=== PATIENT | female | born 1985 | race Caucasian/White ===

== ENCOUNTER 2020-10-09 11:00 | Outpatient (RCR) | payer BC, SELFPAY | END 2020-10-09 11:05 | disposition home or self-care (01) | LOC: PT 11:00 | PROVIDERS: Visit Provider Orthopaedic Surgery | DX: S83.31XA Tear of articular cartilage of right knee, current, initial encounter (principal) | CPT/HCPCS: 97010; 97014; 97110; 97140; 97163; G0283 ==

== ENCOUNTER 2020-10-14 14:06 | Emergency (ER) | payer BC, SELFPAY ==
[2020-10-14 14:07] VITALS: BP 114/45; PULSE 61; RESP 18; TEMP 36.8; O2SAT 100; BMI 22.2
--- NOTE | 2020-10-14 14:21 | HMH.EDGENADL ---
ED Disposition Clinical Impression: Peripheral edema Disposition: Home, Self-Care Condition on Discharge: Good Additional Instructions: Rest, elevate legs. Contact your orthopedist or primary care provider for repeat Doppler exam within the next 5 days. Return to the emergency department if symptoms worsen, or if new symptoms such as chest pain or shortness of breath. Referrals: Provider,Referral, [Primary Care Provider] - - Critical Care Critical Care Time: No Attestation: On 10/14/20, the high probability of a clinically significant, sudden or life threatening deterioration of the following system(s) required my full and direct attention, intervention and personal management. The time I documented below is in addition to time spent performing reported procedures but includes the following listed in this critical care notation. Medical Decision Making - Jose Inquiry Pt receiving controlled substance: No Vital Signs: 10/14/20 14:07 10/14/20 16:09 Temperature 98.3 F 98.3 F Temperature Source Oral Oral Pulse Rate 68 Pulse Rate [Left Radial] 61 Respiratory Rate 18 20 Blood Pressure 116/70 Blood Pressure [Right Arm] 114/45 L Blood Pressure Mean [Right Arm] 68 Blood Pressure Source Automatic Cuff Blood Pressure Source [Right Arm] Automatic Cuff Blood Pressure Position Sitting Blood Pressure Position [Right Arm] Sitting 02 Sat by Pulse Oximetry 100 Oxygen Delivery Method Room Air Room Air - Lab Data Lab Results 10/14/20 14:39: WBC 8.4, RBC 3.81 L, Hgb 11.5 L, Hct 32.9 L, MCV 86.1, MCH 30.1, MCHC 34.9, RDW 12.5, Plt Count 276, MPV 7.7, Neut % (Auto) 69.3, Lymph % (Auto) 23.9, Daniels % (Auto) 4.9, Eos % (Auto) 1.4, Baso % (Auto) 0.6, Neut # (Auto) 5.8, Lymph # (Auto) 2.0, Daniels # (Auto) 0.4, Eos # (Auto) 0.1, Baso # (Auto) 0.1 10/14/20 14:39: Sodium 138, Potassium 3.5, Chloride 101, Carbon Dioxide 32 H, Anion Gap 8.5, BUN 10, Creatinine 0.80, Estimated Creat Clear 82, Estimated GFR 83, Est GFR ( Amer) 100, Glucose 105 H, Calcium 8.8 Result diagrams: 10/14/20 14:39 10/14/20 14:39 - US Data US Images: Lower Extremity Findings Narrative: As per [facility] procedure, doppler report received from registered vascular technologist (rvt): Right leg negative. Left leg negative except for 1 small area of both peroneal vein and calf that would not compress. Medical Decision Narrative: Doubt distal DVT in left leg, but with recommend follow-up repeat Doppler within 5 days to rule out DVT with propagation. General Adult HPI - General Stated complaint: right leg swollen and red Time Seen by Provider: 10/14/20 14:33 - History of Present Illness HPI narrative: The patient had surgery on her right knee on Friday, meniscus and ligament surgery. She has swelling of both of her legs, right greater than left. Denies fever. Says her incisions look great. No chest pain or shortness of breath. She feels great otherwise. She called her orthopedic service and they advised her to come in to be checked for DVT. No prior history of DVT. - Related Data Previous Rx's Medication Instructions Recorded Cyclobenzaprine HCl [Flexeril 10mg 10 mg PO Q8HP PRN 10 Days #30 tab 04/16/19 tablet] Allergies Allergy/AdvReac Type Severity Reaction Status Date / Time acetaminophen Allergy Unknown TWITCHES Unverified 05/06/17 14:16 [From TYLENOL PM] diphenhydramine Allergy Unknown TWITCHES Unverified 05/06/17 14:16 [From TYLENOL PM] [facility] History - Hepatitis A Screen Attestation statement:: This patient has been screened for Hepatitis A risk factors. I have reviewed the patient's past medical history: Yes - Social History Alcohol Intake: never Occupational Status: other ROS Obtained: Yes Systems reviewed as appropriate & no additional complaints - Constitutional Constitutional: Denies fever(s) - Cardiovascular Cardiovascular: Denies chest pain - Respiratory Respiratory: Denies dyspn
--- NOTE | 2020-10-14 14:31 | PC.NURSE ---
RT called medical laboratory technician in for doppler
--- NOTE | 2020-10-14 14:33 | CA_ITS ---
APPROVED REPORT Bilateral Lower Extremity Venous Study for DVT. Investment Strategist: TAWNYA JohnsonT Indications Lower Extremity Pain: Right Lower Extremity Edema: Bilateral S/P RT KNEE SURGERY, SWELLING BLE'S RT WORSE THAN LT, REDNESS RT LEG Risk Factors Post OP Vein Imaging CFV (R): compressive, spontaneous, phasic, augmentation FEM (R): compressive, spontaneous, phasic, augmentation POP (R): compressive, spontaneous, phasic, augmentation PTV (R): Compressible GSV (R): Compressible Peroneals (R):Compressible GAS (R): Compressible CFV (L): compressive, spontaneous, phasic, augmentation FEM (L): compressive, spontaneous, phasic, augmentation POP (L): compressive, spontaneous, phasic, augmentation PTV (L): Compressible GSV (L): Compressible Peroneals (L):Non-Compressible GAS (L): Compressible Findings Study suggests no evidence of DVT of the right lower extremity. Study suggests a non-compressible area in the proximal left proximal peroneal vein other deep veins of left lower extremity are negative. Study suggests no evidence of SVT of the bilateral lower extremites. Conclusion Study suggests no evidence of DVT of the right lower extremity. Study suggests a non-compressible area in the proximal left proximal peroneal vein suggesting DVT. Other deep veins of left lower extremity are negative. Study suggests no evidence of SVT of the bilateral lower extremites. Critical Notification Physician Notified Date: 10/14/2020 Time: 15:55 Physician Name: Dr Draper Electronically signed by : Lewis Bai MD 10/17/2020 17:51:59
[2020-10-14 14:53] LABS: Basophils # 0.1 K/mm3 (0-0.2); Basophils % 0.6 % (0.1-2.0); Eosinophils # 0.1 K/mm3 (0.0-0.4); Eosinophils % 1.4 % (0.1-12.0); Hematocrit 32.9 % (37.0-47.0); Hemoglobin 11.5 g/dL (12.2-16.2); Lymphocytes % 23.9 % (10-50); Mean Corpuscular HGB Conc 34.9 g/dL (31.8-35.4); Mean Corpuscular Hemoglobin 30.1 pg (27.0-31.2); Mean Corpuscular Volume 86.1 fl (81-99); Mean Platelet Volume 7.7 fl (7.4-10.4); Monocytes # 0.4 K/mm3 (0.1-1.0); Monocytes % 4.9 % (1.7-9.3); Neutrophils # 5.8 K/mm3 (1.8-7.8); Neutrophils % 69.3 % (37.0-80.0); Platelet Count 276 K/mm3 (142-424); Red Blood Count 3.81 M/mm3 (4.20-5.40); Red Cell Distribution Width 12.5 % (11.5-17.5); White Blood Count 8.4 K/mm3 (4.8-10.8)
[2020-10-14 14:57] LABS: Anion Gap 8.5 mEq/L (5-15); Blood Urea Nitrogen 10 mg/dl (7-17); Calcium 8.8 mg/dl (8.4-10.2); Carbon Dioxide 32 mmol/L (22.0-30.0); Chloride 101 mmol/L (98-107); Creatinine Clearance Estimated 82 mL/min (50-200); Estimated Glomerular Filt Rate 83 ml/min (>60); GFR (African American) 100 ML/MIN (>60); Glucose 105 mg/dl (74-100); Potassium 3.5 mmoL/L (3.5-5.1); Sodium 138 mmol/L (136-145)
[2020-10-14 16:09] VITALS: BP 116/70; PULSE 68; RESP 20; TEMP 36.8; O2SAT 100
== END 2020-10-14 16:10 | disposition home or self-care (01) ==
PROVIDERS: Emergency Provider Emergency Medicine
DX: R60.0 Localized edema (principal)
CPT/HCPCS: 80048; 85025; 93970; 99282

== ENCOUNTER 2021-03-14 15:00 | Outpatient (RCR) | payer BC, SELFPAY | END 2021-03-14 15:05 | disposition home or self-care (01) | LOC: PT 15:00 | PROVIDERS: Visit Provider Orthopaedic Surgery | DX: S83.31XD Tear of articular cartilage of right knee, current, subsequent encounter (principal); M25.561 Pain in right knee | CPT/HCPCS: 20560; 97010; 97014; 97016; 97033; 97035; 97110; 97140; 97163; 97164; G0283 ==